=== PATIENT | male | born 1970 | race Two or more races ===

== ENCOUNTER 2019-04-05 13:48 | Emergency (ER) | payer SELFPAY ==
[~2019-04-05] VITALS: Ht 182.9 cm; Wt 81.6 kg
[2019-04-05] MEDS ORDERED: EPINEPHrine HCL 1 MG/10 ML SYRG IV ONE (13:49)
[2019-04-05] MEDS ORDERED: LIDOCAINE HCL 100 MG/5ML (2%) SYRG INJ IV ONE (13:49)
[2019-04-05] MEDS ORDERED: CALCIUM CHLOR(10%) 100MG/ML 10ML SYRINGE IV ONE (13:49)
[2019-04-05] MEDS ORDERED: SODIUM BICARBONATE 8.4% INJ 50ML SYRINGE IV ONE (13:49)
== END 2019-04-05 14:23 | disposition expired ==
LOC: ER 13:48
DX: I46.9 Cardiac arrest, cause unspecified (principal); E11.9 Type 2 diabetes mellitus without complications
CPT/HCPCS: 92950; 99285; J0171